=== PATIENT | female | born 1955 | race Caucasian/White ===

== ENCOUNTER 2020-09-05 13:57 | Outpatient (CLI) | payer MEDICARE, OTHER ==
--- NOTE | 2020-09-05 15:19 | ULT ---
ULTRASOUND PELVIS TRNASVAGINAL WITH DOPPLER: HISTORY: Postmenopausal bleeding. COMPARISON: None. FINDINGS: Real-time, hannah scale, color, and spectral analysis of the pelvis is performed by transabdominal and transvaginal approach. No ovaries or uterus are appreciated per the technologist; although, on a few images there appears a possible uterus with thinned endometrium. IMPRESSION: The technologist did not see the patient's ovaries or the uterus, although the uterus is felt to poss ibly be seen on the transvaginal imaging with thinned endometrium. An MRI with and without contrast may be beneficial. CODE T
== END 2020-09-05 13:58 | disposition home or self-care (01) ==
LOC: BICULT 13:57
PROVIDERS: ATTEND Family Medicine
DX: N95.0 Postmenopausal bleeding (principal)
CPT/HCPCS: 76856

== ENCOUNTER 2020-10-10 10:25 | Outpatient (CLI) | payer MEDICARE, OTHER ==
--- NOTE | 2020-10-24 14:35 | MMO ---
Bilateral MAMMO Bilat Screen [facility]. CLINICAL HISTORY: Patient is 65 years old and is seen for screening. The patient has the following family history of breast cancer: maternal grandmother, X2. The patient has no personal history of cancer. The patient has a history of bilateral Implants in 1974 - benign. VIEWS: The views performed were: bilateral craniocaudal with tomosynthesis and bilateral mediolateral oblique with tomosynthesis. FILMS COMPARED: The present examination has been compared to a prior imaging study performed at [facility] on 06/14/2015. This study has been interpreted with the assistance of computer-aided detection. MAMMOGRAM FINDINGS: The breasts are heterogeneously dense, which could obscure a lesion on mammography. There are no suspicious masses, suspicious calcifications, or new areas of architectural distortion. IMPRESSION: THERE IS NO MAMMOGRAPHIC EVIDENCE OF MALIGNANCY. A ROUTINE FOLLOW-UP MAMMOGRAM IN 1 YEAR IS RECOMMENDED. THE RESULTS OF THIS EXAM WERE SENT TO THE PATIENT. ACR BI-RADS Category 1 - Negative MAMMOGRAPHY NOTE: 1. A negative mammogram report should not delay a biopsy if a dominant of clinically suspicious mass is present. 2. Approximately 10% to 15% of breast cancers are not detected by mammography. 3. Adenosis and dense breasts may obscure an underlying neoplasm. Reported by: JASS ONEILL MD Electonically Signed: [id number]
== END 2020-10-10 10:26 | disposition home or self-care (01) ==
LOC: BICMAMMO 10:25
PROVIDERS: ATTEND Family Medicine
DX: Z13.21 Encounter for screening for nutritional disorder (principal); Z91.89 Other specified personal risk factors, not elsewhere classified; Z98.82 Breast implant status; Z80.3 Family history of malignant neoplasm of breast
CPT/HCPCS: 77063; 77067

== ENCOUNTER 2020-11-01 06:41 | Day surgery (SDC) | payer MEDICARE ==
[2020-11-01] MEDS ORDERED: Fentanyl 100 MCG/2 ML VIAL ONE (07:37)
[2020-11-01] MEDS ORDERED: Levofloxacin 500 mg/D5W 100 ml Premix Bag ONE (07:46)
[2020-11-01] MEDS ORDERED: EPINEPHrine 1 MG/ML AMP ONE (07:47)
[2020-11-01] MEDS ORDERED: Bupivacaine 0.25% HCL 30 ML VIAL ONE (07:47)
--- NOTE | 2020-11-01 12:29 | OP ---
DATE OF PROCEDURE: 11/01/2020 PREOPERATIVE DIAGNOSIS: Umbilical hernia. POSTOPERATIVE DIAGNOSIS: Umbilical hernia. PROCEDURE PERFORMED: Umbilical hernia repair with mesh, Ventralex ST, small, 4.3 cm. ANESTHESIA: General. ESTIMATED BLOOD LOSS: Minimal. COMPLICATIONS: None. SPECIMEN: None. FINDINGS: Umbilical hernia. DESCRIPTION OF PROCEDURE: The patient was taken to the operating room and laid supine on the operating table. After general anesthetic was obtained, the abdomen was prepped and draped in a sterile fashion. A curved incision was made below the umbilicus. Cautery was dissected down to and score the fascia. Umbilical stalk was amputated exposing the umbilical defect. The edges of the defect were freshened back to good fascia. The preperitoneal space was bluntly dissected through the defect. The 4.3 cm Ventralex mesh was brought into the sterile field. The underlay was placed in the abdominal cavity. Its tails were laid out lateral. The tails were sewn via U-stitch of permanent braided suture to the edges of the fascia. The tails were cut at the level of the mesh. The fascia was closed loosely over the mesh. The wound was irrigated. Local anesthetic was applied. The umbilical stalk was tacked back down using 3-0 Vicryl. The skin was closed using 3-0 Vicryl, 4-0 Monocryl, and Dermabond. The patient was sent her to Recovery in stable condition. All instrument counts, needle counts, and lap counts were correct. Job ID: [id number]
[2020-11-01] MEDS ORDERED: Ketorolac Tromethamine 30 MG/ML VIAL ONE (13:41)
[2020-11-01] MEDS ORDERED: Lidocaine 1% PF 5 ML VIAL ONE (13:41)
[2020-11-01] MEDS ORDERED: Dexamethasone 20 MG/5 ML VIAL ONE (13:41)
[2020-11-01] MEDS ORDERED: PROPOFOL 200 MG/20 ML VIAL ONE (13:41)
[2020-11-01] MEDS ORDERED: Ondansetron PF 4 MG/2 ML Vial ONE (13:41)
== END 2020-11-01 10:35 | disposition home or self-care (01) ==
LOC: SDC 06:41
PROVIDERS: ATTEND Surgery
PROC: 0WUF0JZ Supplement Abdominal Wall with Synthetic Substitute, Open Approach (ICD-10-PCS; principal; 2020-11-01)
DX: K42.9 Umbilical hernia without obstruction or gangrene (principal); F32.9 Major depressive disorder, single episode, unspecified; I10 Essential (primary) hypertension; M81.0 Age-related osteoporosis without current pathological fracture; E89.0 Postprocedural hypothyroidism; Z87.891 Personal history of nicotine dependence; Z79.83 Long term (current) use of bisphosphonates; Z79.899 Other long term (current) drug therapy; Z88.0 Allergy status to penicillin
CPT/HCPCS: 93005; 93010; J0171; J1100; J1885; J1956; J2405; J2704; J3010; S0020